=== PATIENT | male | born 1985 | race Caucasian/White ===

== ENCOUNTER 2017-10-15 21:25 | Emergency (ER) | payer OTHER ==
[~2017-10-15] VITALS: Ht 180.3 cm; Wt 68.0 kg
[~2017-10-15 21:25] MED LIST: DIAZ5 PO; LORTA5 PO; MEDR4PAK3 PO
[2017-10-15 21:36] VITALS: BP 112/79; PULSE 124; RESP 18; TEMP 97.2; O2SAT 100
== END 2017-10-15 21:43 | disposition left against medical advice (07) ==
LOC: NED 21:25
DX: Z53.21 Procedure and treatment not carried out due to patient leaving prior to being seen by health care provider (principal)
CPT/HCPCS: 99281